=== PATIENT | male | born 1960 | race Two or more races ===

== ENCOUNTER 2018-05-29 11:37 | Emergency (ER) | payer OTHER ==
[~2018-05-29] VITALS: Ht 180.3 cm; Wt 102.1 kg
[~2018-05-29 11:37] MED LIST: ALPRAZOLAM0.025 GM; PROTONIX40 M1; PROZAC20 MG; SYNTHROID150 MCG
== END 2018-05-29 16:20 | disposition home or self-care (01) ==
LOC: ER 11:37
DX: R51 Headache (principal); R42 Dizziness and giddiness

== ENCOUNTER 2018-08-07 16:02 | Emergency (ER) | payer OTHER ==
[~2018-08-07] VITALS: Ht 180.3 cm; Wt 98.9 kg
[2018-08-07] MEDS ORDERED: ARIPIPRAZOLE2 MG (16:49)
== END 2018-08-07 19:11 | disposition home or self-care (01) ==
LOC: ER 16:02
DX: J11.1 Influenza due to unidentified influenza virus with other respiratory manifestations (principal); B34.9 Viral infection, unspecified

== ENCOUNTER 2019-09-07 19:34 | Emergency (ER) | payer OTHER ==
[~2019-09-07] VITALS: Ht 180.3 cm; Wt 108.9 kg
[~2019-09-07 19:34] MED LIST changes: +ARIPIPRAZOLE2 MG
== END 2019-09-07 20:40 | disposition home or self-care (01) ==
LOC: ER 19:34
DX: S05.12XA Contusion of eyeball and orbital tissues, left eye, initial encounter (principal); W22.8XXA Striking against or struck by other objects, initial encounter; Y93.89 Activity, other specified; Y92.098 Other place in other non-institutional residence as the place of occurrence of the external cause; Y99.8 Other external cause status

== ENCOUNTER 2024-11-28 15:33 | Outpatient (CLI) | payer OTHER | END 2024-11-28 15:35 | disposition home or self-care (01) | LOC: SONOGRAMA 15:33 | PROVIDERS: ATTEND Pathology Anatomic Pathology | DX: E04.1 Nontoxic single thyroid nodule (principal); D11.0 Benign neoplasm of parotid gland ==